=== PATIENT | male | born 1950 | race Caucasian/White ===

== ENCOUNTER 2025-02-27 06:11 | Day surgery (SDC) | payer OTHER ==
[2025-02-25 11:07] VITALS: BMI 35.4
[2025-02-27] MEDS ORDERED: LIDOCAINE HCL/PF 1% SDV 5ML VIAL ONE ×2 (07:26→11:09)
[2025-02-27] MEDS ORDERED: DEXAMETHASONE SOD PHOSPHATE 10 MG/1 ML VIAL ONE (07:26)
[2025-02-27] MEDS ORDERED: ACETAMINOPHEN 500 MG TABLET (FP) PO PRN (08:44)
[2025-02-27 10:00] VITALS: RESP 18
[2025-02-27] MEDS: IOHEXOL 180 MG/1 ML ML IJ ONE ×2 (11:49)
[2025-02-27] MEDS: LIDOCAINE HCL 1% PRESERVATIVE FREE - 30ML VIAL IJ ONE ×2 (11:50)
[2025-02-27] MEDS: DEXAMETHASONE SOD PHOSPHATE 10 MG/1 ML VIAL IVPUSH ONE ×2 (11:51)
[2025-02-27 12:36] VITALS: BP 128/63; PULSE 78; TEMP 98
== END 2025-02-27 12:07 | disposition home or self-care (01) ==
LOC: JASU-SURG 06:11
PROVIDERS: ATTEND Pain Medicine Pain Medicine
PROC: 3E0R3BZ Introduction of Anesthetic Agent into Spinal Canal, Percutaneous Approach (ICD-10-PCS; 2025-02-27)
PROC: 3E0R33Z Introduction of Anti-inflammatory into Spinal Canal, Percutaneous Approach (ICD-10-PCS; principal; 2025-02-27 11:45)
DX: M48.061 Spinal stenosis, lumbar region without neurogenic claudication (principal); M54.16 Radiculopathy, lumbar region
CPT/HCPCS: 76000-TC-FY; J1100